=== PATIENT | female | born 1980 | race Caucasian/White ===

== ENCOUNTER 2021-09-28 12:12 | Emergency (ER) | payer OTHER ==
[~2021-09-28] VITALS: Ht 160 cm; Wt 102.1 kg
[~2021-09-28 12:12] MED LIST: FLEXERIL5 MG PO; IBUPROFEN400 MG PO; NORCO 5-325 TA1 EACH PO
== END 2021-09-28 17:40 | disposition home or self-care (01) ==
LOC: ED 12:12
DX: S63.501A Unspecified sprain of right wrist, initial encounter (principal); W51.XXXA Accidental striking against or bumped into by another person, initial encounter; Y99.0 Civilian activity done for income or pay
CPT/HCPCS: 73110; 99283-25; A9270